=== PATIENT | female | born 1975 | race Hispanic/Latino ===

== ENCOUNTER 2018-07-22 08:41 | Outpatient (CLI) | payer BC ==
--- NOTE | 2018-07-22 09:34 | RAD ---
RIGHT HIP TWO VIEWS: Clinical history: Right hip pain. No injury. FINDINGS: Joint space is well preserved. Femoral head is normal in shape. No fracture or other findings. IMPRESSION: Unremarkable right hip. POS: [facility]
--- NOTE | 2018-07-22 10:14 | RAD ---
AP PELVIS: Date: 07/22/18 HISTORY: Polyarthritis. Pain. COMPARISON: None. FINDINGS: There are mild enthesopathic changes on the left greater trochanter. No acute fracture or malalignmen t. Mild degenerative disease of the SI joints. There are phleboliths in the pelvis. IMPRESSION: 1. Mild degenerative changes. No acute abnormality. 2. Mild enthesopathic changes left greater trochanter may be sequelae of gluteus medius/minimus tend inosis. POS: [facility]
== END 2018-07-22 08:42 | disposition home or self-care (01) ==
LOC: BICRAD 08:41
PROVIDERS: ATTEND Family Medicine
DX: M25.552 Pain in left hip (principal); M24.152 Other articular cartilage disorders, left hip; M16.12 Unilateral primary osteoarthritis, left hip
CPT/HCPCS: 72170

== ENCOUNTER 2019-02-17 08:56 | Outpatient (CLI) | payer BC ==
--- NOTE | 2019-02-17 10:13 | RAD ---
LEFT KNEE TWO VIEWS: 02/17/2019 PROVIDED CLINICAL HISTORY: Left knee pain. FINDINGS: No evidence for fracture or other acute osseous abnormality. Alignment appears anatomic. Joint spac es appear preserved. IMPRESSION: No evidence for an acute osseous abnormality or significant arthropathy. POS: C
--- NOTE | 2019-02-17 10:15 | RAD ---
LUMBAR SPINE THREE VIEWS: HISTORY: Other dorsalgia. Back pain. FINDINGS/IMPRESSION: AP and lateral views of the thoracic spine demonstrate disk osteophytosis with some disk space narrow ing at L4-L5 and at L5-S1, without focal bone lesion, fracture, significant malalignment or other acu te process. POS: [facility]
--- NOTE | 2019-02-17 10:16 | RAD ---
RIGHT KNEE RADIOGRAPHS TWO VIEWS: 02/17/2019 PROVIDED CLINICAL HISTORY: Right knee pain. COMPARISON: None. FINDINGS: Osteophyte formation is seen about the lateral femorotibial joint. There is severe lateral femorotib ial joint space narrowing with genu valgum. Patellofemoral osteophyte formation is also noted. 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 POS: C
== END 2019-02-17 08:57 | disposition home or self-care (01) ==
LOC: BICRAD 08:56
PROVIDERS: ATTEND Internal Medicine Rheumatology
DX: M17.0 Bilateral primary osteoarthritis of knee (principal); M54.89 Other dorsalgia; M21.061 Valgus deformity, not elsewhere classified, right knee; M25.78 Osteophyte, vertebrae; M48.061 Spinal stenosis, lumbar region without neurogenic claudication; M48.07 Spinal stenosis, lumbosacral region
CPT/HCPCS: 72100